=== PATIENT | female | born 1965 | race Two or more races ===

== ENCOUNTER 2024-02-19 22:39 | Emergency (ER) | payer MEDICAID, OTHER ==
[~2024-02-19] VITALS: Ht 157.5 cm; Wt 67.4 kg
[2024-02-20 00:17] VITALS: BP 122/75; PULSE 66; RESP 16; TEMP 98.6; O2SAT 98
[2024-02-20] MEDS: HYDROcodone-ACET 5/325MG TAB PO ONE (00:37)
[2024-02-20] MEDS ORDERED: IBUP-1455 PO (01:20)
[2024-02-20] MEDS ORDERED: HYDR-4902 PO (01:20)
== END 2024-02-20 01:32 | disposition home or self-care (01) ==
LOC: ER 22:39
DX: S42.212A Unspecified displaced fracture of surgical neck of left humerus, initial encounter for closed fracture (principal); W01.0XXA Fall on same level from slipping, tripping and stumbling without subsequent striking against object, initial encounter; Y93.89 Activity, other specified; Y92.89 Other specified places as the place of occurrence of the external cause; Y99.8 Other external cause status
CPT/HCPCS: 29105; 73030